=== PATIENT | female | born 2000 | race Caucasian/White ===

== ENCOUNTER 2020-11-24 14:57 | Inpatient (IN) | payer OTHER ==
[~2020-11-24] VITALS: Ht 160 cm; Wt 70.8 kg
--- NOTE | 2020-11-24 16:48 | NUR ---
RT COLLECTED COVID 19 SWAB WITH NO COMPLICATIONS. RT USED THE CEPHEID RAPID TEST THROUGH [facility] PER DR REQUEST AT THIS TIME.
--- NOTE | 2020-11-24 19:32 | PR ---
[facility] [address] [facility] [place], [place] [address] Signed Progress Notes IP Datetime Report Generated by CPN: 11/24/2020 19:32 PROGRESS NOTES: [id number] Impression: Normal Progression of Labor; Reassuring Heart Rate Procedures: Artificial ROM; Sterile Vag Exam Plan: Continue Present Management VITAL SIGNS: [id number] Vital Signs: Reviewed; Within Normal Limits EXAM: [id number] Dilatation: 4.0 Effacement: 90 Station: -2 Contractions: q 3 to 4 min MEMBRANES: [id number] Comments: Progressing. Will continue. FETUS A: [id number] FHR Baseline: 130 Variability: Moderate 6-25bpm Accelerations: 15X15 Decelerations: None FHR Category: Category I Presentation: Vertex Comments on Fetus A: No evidence of metabolic acidosis FETUS B: [id number] Signing Physician: Elena Ward MD Copies: ~ *Electronically Signed* 11/24/201931 ELENA WARD MD PATIENT NAME: SERGIO GUILLERMO PROGRESS NOTE DATE OF : 99 PHYSICIAN: ELENA WARD MD RPT #: [id number] REPORT IS CONFIDENTIAL AND NOT TO BE RELEASED WITHOUT AUTHORIZATION
--- NOTE | 2020-11-25 00:15 | PR ---
[facility] [address] [place], [place] [address] Signed Progress Notes IP Datetime Report Generated by DELBERT: 11/25/2020 00:15 PROGRESS NOTES: [id number] Impression: Reassuring Heart Rate Procedures: Intrauterine Pressure Catheter; Sterile Vag Exam Plan: Augmentation VITAL SIGNS: [id number] Vital Signs: Reviewed; Within Normal Limits EXAM: [id number] Dilatation: 4.0 Effacement: 90 Station: -1 Contractions: q 3 to 4 min MEMBRANES: [id number] Comments: Comfortable after epidural. Slow progress. Will place IUPC and augment as needed. FETUS A: [id number] FHR Baseline: 130 Variability: Moderate 6-25bpm Accelerations: 15X15 Decelerations: None FHR Category: Category I Presentation: Vertex Comments on Fetus A: No evidence of metabolic acidosis FETUS B: [id number] Signing Physician: Elena Ward MD Copies: ~ *Electronically Signed* 11/25/20 0015 ELENA WARD MD PATIENT NAME: SERGIO GUILLERMO Kemal PROGRESS NOTE DATE OF : 99 PHYSICIAN: ELENA WARD MD RPT #: [id number] REPORT IS CONFIDENTIAL AND NOT TO BE RELEASED WITHOUT AUTHORIZATION
--- NOTE | 2020-11-26 09:56 | PR ---
[facility] [address] [facility] [place], [place] [address] Signed PP Progress Notes Datetime Report Generated by CPDonald: 11/26/2020 09:56 SUBJECTIVE: [id number] Pain: Within Normal Limits Nausea/Vomiting: Present Vital Signs: [id number] Vital Signs: Reviewed; Within Normal Limits Cardiovascular: Not Done Respiratory: Not Done Abdomen/Uterus: Abnormal Lochia: Normal Vulva/Perineum: Not Done Breasts: Not Done CVA Tenderness: Not Done Extremities: Normal Incision: Not Applicable Progress: Normal Exam Comments: Fundus firm, NT @ U-2. H/H 8/24.5, WBC 16.8, plat 174k IMPRESSION/PLAN/PROCEDURES: [id number] Impression: Normal Progression Other Impression: Nausea after meds Plan: Continue Present Management Progress Notes: Doing well but having some nausea after taking her meds. Encouraged to take meds after eating. Signing Physician: Elena Ward MD Copies: ~ *Electronically Signed* 11/26/20 0956 ELENA WARD MD PATIENT NAME: SERGIO GUILLERMO PROGRESS NOTE DATE OF : 99 PHYSICIAN: ELENA WARD MD RPT #: [id number] REPORT IS CONFIDENTIAL AND NOT TO BE RELEASED WITHOUT AUTHORIZATION
--- NOTE | 2020-11-27 09:49 | PR ---
[facility] [address] [facility] [place], [place] [address] Signed PP Progress Notes Datetime Report Generated by CPN: 11/27/2020 09:49 SUBJECTIVE: [id number] Pain: Within Normal Limits Nausea/Vomiting: Denies Vital Signs: [id number] Vital Signs: Reviewed; Within Normal Limits Cardiovascular: Not Done Respiratory: Not Done Abdomen/Uterus: Abnormal Lochia: Normal Vulva/Perineum: Not Done Breasts: Not Done CVA Tenderness: Not Done Extremities: Normal Incision: Not Applicable Progress: Normal Exam Comments: Fundus firm, NT @ U-2. IMPRESSION/PLAN/PROCEDURES: [id number] Impression: Normal Progression Other Impression: Nausea after meds Plan: Discharge Other Procedures: varicella vaccination Progress Notes: Doing well. She is ready for D/C. Signing Physician: Elena Ward MD Copies: ~ *Electronically Signed* 11/27/20 0949 ELENA WARD MD PATIENT NAME: SERGIO GUILLERMO PROGRESS NOTE DATE OF : 99 PHYSICIAN: ELENA WARD MD RPT #: [id number] REPORT IS CONFIDENTIAL AND NOT TO BE RELEASED WITHOUT AUTHORIZATION
== END 2020-11-27 12:58 | disposition home or self-care (01) | DRG 768 ==
LOC: FBCO 14:57 → FBC 16:29
PROVIDERS: ADMIT Obstetrics & Gynecology; ATTEND Obstetrics & Gynecology
PROC: 10907ZC Drainage of Amniotic Fluid, Therapeutic from Products of Conception, Via Natural or Artificial Opening (ICD-10-PCS; 2020-11-24)
PROC: 00HU33Z Insertion of Infusion Device into Spinal Canal, Percutaneous Approach (ICD-10-PCS; 2020-11-24)
PROC: 3E0R3BZ Introduction of Anesthetic Agent into Spinal Canal, Percutaneous Approach (ICD-10-PCS; 2020-11-24)
PROC: 10E0XZZ Delivery of Products of Conception, External Approach (ICD-10-PCS; principal; 2020-11-25)
PROC: 0DQR0ZZ Repair Anal Sphincter, Open Approach (ICD-10-PCS; 2020-11-25)
PROC: 10H07YZ Insertion of Other Device into Products of Conception, Via Natural or Artificial Opening (ICD-10-PCS; 2020-11-25)
PROC: 3E0234Z Introduction of Serum, Toxoid and Vaccine into Muscle, Percutaneous Approach (ICD-10-PCS; 2020-11-27)
DX: O99.824 Streptococcus B carrier state complicating childbirth (principal); Z37.0 Single live birth; Z3A.40 40 weeks gestation of pregnancy; Z20.822 Contact with and (suspected) exposure to COVID-19; O75.89 Other specified complications of labor and delivery; O77.0 Labor and delivery complicated by meconium in amniotic fluid; O26.03 Excessive weight gain in pregnancy, third trimester; O70.20 Third degree perineal laceration during delivery, unspecified; Z23 Encounter for immunization
CPT/HCPCS: 01960; 36415; 59025; 85027; 90716; 99213; A9270; C9803; J2540; J2590; J2795; J3010; J7121; U0003